=== PATIENT | male | born 1985 | race Caucasian/White ===

== ENCOUNTER 2019-09-12 11:17 | Emergency (ER) | payer OTHER, SELFPAY ==
[2019-09-12] VITALS (7 sets, daily range): BP systolic 85–99; BP diastolic 47–80; PULSE 75–87; RESP 13–18; TEMP 36.1–36.8; O2SAT 94–100
[2019-09-12] MEDS: SODIUM CHLORIDE 0.9% IV 1,000 ML 999 ML (11:38)
--- NOTE | 2019-09-12 11:38 | PC.NURSE ---
eddie to start NS 1l x1 from shivam espinosa
[2019-09-12 11:48] LABS: Basophils Percent Auto 0.4 % (0.2-1.2); Eosinophils Absolute Auto 0.1 K/mm3 (0-0.3); Eosinophils Percent Auto 0.7 % (0-4.4); Hematocrit 26.7 % (42.0-52.0); Hemoglobin 9.2 g/dL (14.0-18.0); Immature Granulocyte Absolute 0.92 K/mm3 (0.00-0.031); Immature Granulocyte Percent A 10.9 % (0-0.5); Immature Platelet Fraction Pct 3.3 % (0.9-11.2); Lymphocytes Absolute Auto 0.32 K/mm3 (0.9-3.2); Lymphocytes Percent Auto 3.8 % (18.3-44.2); Mean Corpuscular HGB Conc 34.5 g/dl (32-36); Mean Corpuscular Hemoglobin 32.1 pg (26-34); Mean Platelet Volume 11.1 fl (7.4-10.4); Monocytes Absolute Auto 0.6 K/mm3 (0.1-0.6); Monocytes Percent Auto 7.4 % (2.6-8.5); Neutrophils Absolute Auto 6.5 K/mm3 (1.3-6.7); Neutrophils Percent Auto 76.8 % (45.5-73.1); Nucleated Red Blood Cells Absolute Auto 0.1 K/mm3 (0.0-0.012); Nucleated Red Blood Cells Perc 1.4 % (0.0-0.2); Platelet Count Result 66 k/mm3 (150-375); Red Blood Count 2.87 M/mm3 (4.6-6.20); Red Cell Distribution Width 25.5 % (11.5-14.5); White Blood Count 8.5 K/mm3 (4.5-10.0)
[2019-09-12 11:56] LABS: INR 3.4; Prothrombin Time 33.5 Seconds (11.1-14.7)
[2019-09-12 11:58] LABS: Partial Thromboplastin Time 91.5 SECONDS (22.3-36.8)
[2019-09-12 12:00] LABS: Platelet Estimate Decreased (Adequate)
[2019-09-12 12:01] LABS: Poikilocytosis 1+ (NORMAL); Stomatocytes 2+ (NORMAL)
[2019-09-12 12:11] LABS: Alanine Aminotransferase 47 U/L (4-50); Albumin Level 2.8 g/dL (3.5-5.1); Alkaline Phosphatase 277 U/L (38-126); Aspartate Amino Transferase 92 U/L (17-59); Blood Urea Nitrogen 110 mg/dL (9-20); Calcium 7.5 mg/dL (8.4-10.2); Carbon Dioxide 16 mmol/L (22-30); Chloride 94 mmol/L (98-107); Estimated CRCL calculation 11 ml/min; Estimated Glomerular Filt Rate 5; Glucose 130 mg/dL (75-110); Potassium 3.5 mmol/L (3.4-5.0); Sodium 126 mmol/L (137-145)
[2019-09-12 12:12] LABS: Ammonia 72 umol/L (9-30)
[2019-09-12 12:18] LABS: Bilirubin,Total > 40.0 mg/dL (0.2-1.3)
--- NOTE | 2019-09-12 13:23 | ED.GENADULT ---
HPI - General Adult General Chief complaint: GI Bleed Stated complaint: not eating or drinking Time Seen by Provider: 09/12/19 12:21 History of Present Illness HPI narrative: Patient presents via EMS from his home for increasing confusion and weakness. He is unable to give chief complaint or history, due to hepatic encephalopathy. His mother called the ED to give current situation. She said that he was discharged September 03 from [facility], and that he is too weak to take care of himself. He cannot answer questions appropriately, except that he does say he has pain in his lower back. Onset (ago): day(s) Related Data Home Medications Medication Instructions Recorded Confirmed atorvastatin 09/12/19 carvedilol 09/12/19 folic acid 09/12/19 furosemide 09/12/19 lamotrigine 09/12/19 levetiracetam PO 09/12/19 naloxone [Narcan] INTRANASAL 09/12/19 ondansetron HCl 09/12/19 pantoprazole PO 09/12/19 sertraline mg 09/12/19 trazodone 09/12/19 Allergies Allergy/AdvReac Type Severity Reaction Status Date / Time No Known Allergies Allergy Verified 05/17/16 13:03 Review of Systems Review of Systems: Narrative: Patient is unable to answer questions appropriately, due to hepatic encephalopathy. His mother reports that he has been weak. [facility] Social History Social History Smoking status: Light tobacco smoker Alcohol intake: never Substance use type: marijuana Exam Narrative: Exam Narrative: GENERAL: Patient is cachectic and has an orange color jaundiced. He is able to talk but what he says does not make sense. HEAD: Normocephalic, atraumatic. EYES: PERRLA and EOMI. sclera is orange ENT: Nares clear, no rhinorrhea. Small amount of dried blood on the external nares mucous membranes moist. NECK: Supple. CHEST: Clear to auscultation. No respiratory distress. HEART: Regular rate and rhythm. No murmur heard. Normal peripheral pulses. ABDOMEN: Soft, distended abdomen, EXTREMITIES: Normal range of motion. No edema. SKIN: Warm, dry, multiple areas of contusions. NEURO: No focal deficits. Alert not oriented PSYCH: Flat affect. Course Reevaluation(s) Reevaluation #1: The nurse suggests that the mother and patient would be open to a discussion about hospice. I offered him the choice of going to [facility] to see if anything could be done, or to stay here in excess palliative and hospice care. He chooses to stay here to be near his mother and father. He understands that this is hospice care, and we will work hard to keep him comfortable. Date: 09/12/19 Time: 15:00 Consultations Consultation #1: Called [facility] to transfer the patient back to their care. Call at 1345, the hospitalist will call back. She was able to get into the chart and the patient had had a transplant evaluation, and was denied. He was discharged into the care of his mother. Date: 09/12/19 Time: 13:27 Consultation #2: Matt Bobo,hospitalist for [facility] called back, and accepts the patient. 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 Since he is not a liver transplant candidate, she will pursue palliative and possibly hospice care for him. We will transport him to [facility]. Date: 09/12/19 Time: 14:18 Consultation #3: The patient's mother is here. I told her about the kidney failure in addition to the liver failure. She seems understand that this is a terminal situation. She is alone, the patient's father is not in good physical health. The patient has apparently done rehab several times, and was refused to have rehab again. I told her we were sending him to [facility] and she was pleased. Date: 09/12/19 Time: 14:31 Additional Consultation(s): Called the hospitalist here to admit. Giselle suggests calling hospice directly. Latesha Costello [phone] hospice came and evaluated the patient and have admitted him under Dr. Metcalf.Latesha Costello Vital Signs Vital signs: Vital Signs
--- NOTE | 2019-09-12 14:48 | PC.NURSE ---
Physical assessment of this patient reveals kevin jaundice to the entire body as well as being noted in both eyes. Multiple bruises in various stages of healing noted throughout this patient's body. He has large excoriated area around anus and perineum with minor sanguineous drainage noted.
--- NOTE | 2019-09-12 15:14 | PC.NURSE ---
Called and talked to [facility] and they will have someone come out and evaluate the patient.
--- NOTE | 2019-09-12 15:32 | PC.NURSE ---
Staff called to bedside; large amount of dark, black, liquid stool on floor. Patient cleaned and linen changed. Warm blankets offered. EDP aware; no new orders at this time.
--- NOTE | 2019-09-12 16:24 | PC.NURSE ---
verbal order for 0.5 mg of Ativan to be given IVP was received from Dr. Costello.
--- NOTE | 2019-09-12 16:26 | PC.NURSE ---
Addendum entered by Bhavesh Escamilla RN 09/12/19 16:29: Discussion of palliative/hospice care was done at 1500 hours on 09/12/2019. Original Note: Idea of palliative/hospice care was discussed with this patient and his mother. They agreed that they would prefer this route of care instead of transfer. I spoke with Dr. Costello who agreed and discussed further with the patient and his family. Hospice contact was initiated for this patient.
[2019-09-12] MEDS: LORAZEPAM INJ 2 MG/ML VIAL 0.5 MG IV PUSH (16:36)
[2019-09-12] MEDS: SODIUM CHLORIDE 0.9% IV 1,000 ML 150 ML IV CONT (16:44)
--- NOTE | 2019-09-12 17:00 | PC.NURSE ---
[employer] medical sales associate present with family and patient at this time.
[2019-09-12] MEDS: ONDANSETRON INJ 4 MG/2 ML VIAL IV PUSH (17:15)
== END 2019-09-12 18:45 | disposition hospice, inpatient (51) ==
PROVIDERS: Emergency Provider Emergency Medicine
DX: K72.90 Hepatic failure, unspecified without coma (principal); E87.1 Hypo-osmolality and hyponatremia; E87.2 Acidosis; R41.0 Disorientation, unspecified; D69.6 Thrombocytopenia, unspecified; Q87.89 Other specified congenital malformation syndromes, not elsewhere classified; N18.4 Chronic kidney disease, stage 4 (severe); N17.9 Acute kidney failure, unspecified; D64.9 Anemia, unspecified; F17.200 Nicotine dependence, unspecified, uncomplicated
CPT/HCPCS: 36415; 80053; 82140; 85025; 85055; 85610; 85730; 86850; 86900; 86901; 96361; 96374; 96375; 99285; J2060; J2405; J7030

== ENCOUNTER 2019-09-12 18:13 | HOS | payer OTHER, SELFPAY ==
--- NOTE | 2019-09-12 18:55 | PC.NURSE ---
Patient arrived to unit. Patient and family oriented to unit. Report received from ALEXANDER Ospina. [facility] was in room to assist in making patient comfortable.
[2019-09-12 19:22] VITALS: BP 91/49; PULSE 85; RESP 16; TEMP 35.7; O2SAT 100
[2019-09-12] MEDS: LORAZEPAM INJ 2 MG/ML VIAL 1 MG IV PUSH (21:44)
[2019-09-12] MEDS: PROCHLORPERAZINE EDISYLATE 10 MG/2 ML VIAL IV PUSH (23:45)
[2019-09-13] MEDS: PROCHLORPERAZINE EDISYLATE 10 MG/2 ML VIAL IV PUSH ×3 (06:13→17:12)
[2019-09-13 06:38] VITALS: BP 81/41; PULSE 83; RESP 16; TEMP 36.5; O2SAT 97
[2019-09-13 08:00] VITALS: BP 75/36; PULSE 83; RESP 16; TEMP 35.5; O2SAT 97
[2019-09-13] MEDS: GLYCOPYRROLATE INJ (*SP) 0.2 MG/ML VIAL 0.1 MG IV PUSH (14:10)
--- NOTE | 2019-09-13 16:40 | PC.NURSE ---
Called Dr. Mccann to notify him of patient's condition and that family is requesting to see him. Orders received to increase the Dilaudid drip to 0.5mg/hr at a rate of 1ml/hr.
[2019-09-13] MEDS: LORAZEPAM INJ 2 MG/ML VIAL 1 MG IV PUSH (16:57)
--- NOTE | 2019-09-13 18:57 | P.SS_ITS ---
Same Day Admit/Disch: HPI History of Present Illness Chief complaint: Liver Failure Narrative: Manuel Tarango is a 33 year old male was admitted for inpatient hospice care due to uncontrolled discomfort and agitation. REPLACED BY [facility] Family History Family History (Updated 09/12/19 @ 19:49 by Maribel Mckeon RN) Father Heart burn High cholesterol Alcohol abuse Diabetes mellitus Mother Heart burn High cholesterol Social History Social History Smoking status: Light tobacco smoker Alcohol intake: never Substance use type: marijuana Gender identity (if verbalized by the patient): Male Spiritual care concerns: No Same Day Admit/Disch: Med Pre-admit Medications Home Medications Medication Instructions Recorded Confirmed Type atorvastatin 09/12/19 History carvedilol 09/12/19 History folic acid 09/12/19 History furosemide 09/12/19 History lamotrigine 09/12/19 History levetiracetam PO 09/12/19 History naloxone [Narcan] INTRANASAL 09/12/19 History ondansetron HCl 09/12/19 History pantoprazole PO 09/12/19 History sertraline mg 09/12/19 History trazodone 09/12/19 History Exam Narrative: Exam Narrative: prior to examination DS: Summary Hospital Course Reason for hospitalization: comfort care Hospital Course: Comfort medications were ordered and titrated. Patient was comfortable until evening of . He developed labored breathing and hydromorphone was titrated up. He peacefully with his father at bedside. Status at Discharge Overall status at discharge: other () Time Spent with Patient Time attestation: Total time spent providing and/or coordinating discharge services: 30 min Discharge Plan Discharge Discharging Clinician: Aurelio Mccann Patient Disposition: Other Activity: other - see discharge instructions Diet: other - see discharge instructions Discharge Instructions: Patient Instructions: Antibiotic Form Stand Alone Forms: General Discharge Information Discharge Medications: Discontinued atorvastatin 20 mg tablet RF: 0 trazodone 50 mg tablet RF: 0 ondansetron HCl 4 mg tablet RF: 0 carvedilol 3.125 mg tablet RF: 0 pantoprazole 40 mg tablet,delayed release (DR/EC) PO RF: 0 folic acid 1 mg tablet RF: 0 levetiracetam 750 mg tablet PO RF: 0 furosemide 20 mg tablet RF: 0 sertraline 50 mg tablet RF: 0 lamotrigine 100 mg tablet RF: 0 Narcan 4 mg/actuation spray,non-aerosol INTRANASAL RF: 0 Date of admission: 09/12/19 18:13 Primary Care Provider: UNKNOWN,DOCTOR Admitting Provider: Aurelio Mccann Attending physician on admission: Aurelio Mccann Condition:
== END 2019-09-13 17:25 | disposition expired | DRG 443 ==
PROVIDERS: Admitting Provider Internal Medicine; Visit Provider Internal Medicine
DX: K72.90 Hepatic failure, unspecified without coma (principal); Z51.5 Encounter for palliative care
CPT/HCPCS: A9270; J0780; J1170; J2060